=== PATIENT | male | born 1970 | race Two or more races ===

== ENCOUNTER 2018-01-02 08:10 | Outpatient (CLI) | payer OTHER | END 2018-01-02 11:34 | disposition home or self-care (01) | LOC: NUCLEAR 08:10 | DX: I80.8 Phlebitis and thrombophlebitis of other sites (principal); I87.2 Venous insufficiency (chronic) (peripheral) ==

== ENCOUNTER 2018-02-23 11:15 | Outpatient (CLI) | payer OTHER | END 2018-02-23 17:00 | disposition home or self-care (01) | LOC: SONOGRAMA 11:15 | DX: R10.11 Right upper quadrant pain (principal); B19.9 Unspecified viral hepatitis without hepatic coma ==

== ENCOUNTER 2018-12-13 13:49 | Emergency (ER) | payer OTHER ==
[~2018-12-13] VITALS: Ht 170.2 cm; Wt 72.1 kg
== END 2018-12-13 15:33 | disposition home or self-care (01) ==
LOC: ER 13:49
DX: B34.9 Viral infection, unspecified (principal); J40 Bronchitis, not specified as acute or chronic

== ENCOUNTER 2019-06-05 10:59 | Outpatient (CLI) | payer OTHER | END 2019-06-05 11:10 | disposition home or self-care (01) | LOC: LAB 10:59 | DX: C18.9 Malignant neoplasm of colon, unspecified (principal); Z12.11 Encounter for screening for malignant neoplasm of colon; D64.4 Congenital dyserythropoietic anemia; R11.0 Nausea ==

== ENCOUNTER 2019-06-09 10:22 | Outpatient (CLI) | payer OTHER | END 2019-06-09 17:00 | disposition home or self-care (01) | LOC: TOM 10:22 | DX: R10.84 Generalized abdominal pain (principal); R19.00 Intra-abdominal and pelvic swelling, mass and lump, unspecified site ==

== ENCOUNTER 2019-07-16 15:58 | Outpatient (CLI) | payer OTHER | END 2019-07-16 17:00 | disposition home or self-care (01) | LOC: RAD 15:58 | DX: M54.2 Cervicalgia (principal) ==

== ENCOUNTER 2020-10-13 14:31 | Outpatient (CLI) | payer OTHER | END 2020-10-13 14:40 | disposition home or self-care (01) | LOC: MRI 14:31 | PROVIDERS: ATTEND Physical Medicine & Rehabilitation | DX: M54.2 Cervicalgia (principal) | CPT/HCPCS: 72141 ==

== ENCOUNTER 2021-04-17 09:06 | Outpatient (CLI) | payer OTHER | END 2021-04-17 09:21 | disposition home or self-care (01) | LOC: TOM 09:06 | PROVIDERS: ATTEND General Practice | DX: K76.0 Fatty (change of) liver, not elsewhere classified (principal); K85.80 Other acute pancreatitis without necrosis or infection; K63.89 Other specified diseases of intestine; K57.90 Diverticulosis of intestine, part unspecified, without perforation or abscess without bleeding ==

== ENCOUNTER 2021-07-05 12:29 | Outpatient (CLI) | payer OTHER | END 2021-07-05 12:34 | disposition home or self-care (01) | LOC: RAD 12:29 | PROVIDERS: ATTEND Physical Medicine & Rehabilitation | DX: M25.511 Pain in right shoulder (principal); M25.579 Pain in unspecified ankle and joints of unspecified foot ==

== ENCOUNTER 2021-08-29 09:00 | Outpatient (CLI) | payer OTHER | END 2021-08-29 09:33 | disposition home or self-care (01) | LOC: PPH VACUNA 09:00 | PROVIDERS: ATTEND Emergency Medicine Pediatric Emergency Medicine | DX: Z23 Encounter for immunization (principal) ==

== ENCOUNTER 2022-01-04 08:00 | Outpatient (CLI) | payer OTHER | END 2022-01-04 08:30 | disposition home or self-care (01) | LOC: PPH VACUNA 08:00 | PROVIDERS: ATTEND Emergency Medicine Pediatric Emergency Medicine | DX: Z23 Encounter for immunization (principal) ==

== ENCOUNTER 2022-02-01 12:21 | Outpatient (CLI) | payer OTHER | END 2022-02-01 12:31 | disposition home or self-care (01) | LOC: MRI 12:21 → EDBD 12:21 → MRI 12:31 | PROVIDERS: ATTEND Physical Medicine & Rehabilitation | DX: M25.562 Pain in left knee (principal) | CPT/HCPCS: 73721 ==

== ENCOUNTER 2022-06-06 14:15 | Outpatient (CLI) | payer OTHER | END 2022-06-06 14:19 | disposition home or self-care (01) | LOC: PPH VACUNA 14:15 | PROVIDERS: ATTEND Emergency Medicine Pediatric Emergency Medicine | DX: Z23 Encounter for immunization (principal) ==

== ENCOUNTER 2022-09-06 09:35 | Outpatient (CLI) | payer OTHER | END 2022-09-06 09:50 | disposition home or self-care (01) | LOC: MRI 09:35 | PROVIDERS: ATTEND Otolaryngology | DX: H61.23 Impacted cerumen, bilateral (principal); H93.13 Tinnitus, bilateral; H90.3 Sensorineural hearing loss, bilateral; J30.9 Allergic rhinitis, unspecified ==

== ENCOUNTER 2022-10-02 10:14 | Outpatient (CLI) | payer OTHER | END 2022-10-02 10:39 | disposition home or self-care (01) | LOC: TOM 10:14 | DX: I61.0 Nontraumatic intracerebral hemorrhage in hemisphere, subcortical (principal) ==

== ENCOUNTER 2024-12-04 14:04 | Emergency (ER) | payer OTHER ==
[~2024-12-04] VITALS: Ht 167.6 cm; Wt 69.9 kg
[2024-12-04] MEDS ORDERED: LEVSIN0.125 MG (14:26)
[2024-12-04] MEDS ORDERED: PEPCID AC10 MG (14:26)
[2024-12-04] MEDS ORDERED: ACID REDUCER20 M1 (14:27)
[2024-12-04] MEDS ORDERED: FAMOTIDINE/PF 20 MG/2 ML VIAL IV ONE (16:15)
[2024-12-04] MEDS ORDERED: 0.9 % SODIUM CHLORIDE 500 ML IV ONE (16:30)
[2024-12-04] MEDS ORDERED: KETOROLAC TROMETHAMINE 30 MG VIAL IV ONE (16:30)
[2024-12-04] MEDS ORDERED: FAMOTIDINE/PF 20 MG/2 ML VIAL ONE (16:59)
[2024-12-04] MEDS ORDERED: KETOROLAC TROMETHAMINE 30 MG VIAL ONE (16:59)
[2024-12-04 17:31] LABS: HEMATOCRIT 46.2 % (39.0-48.0); HEMOGLOBIN 15.5 g/dL (13-16.00); MEAN CELL VOLUME 92.9 fL (80.0-100.00); MEAN CORPUSCULAR HEMOGLOBIN 31.2 pg (27.00-32.0); MEAN CORPUSCULAR HGB CONC 33.5 g/dl (32.0-36.0); PLATELET COUNT 170 K/uL (150-450); RED BLOOD COUNT 4.98 M/uL (4.00-6.00); RED CELL DISTRIBUTION WIDTH 12.8 % (11.5-14.5)
[2024-12-04 17:51] LABS: ALBUMIN 3.7 gm/dL (3.4-5.0); BILIRUBIN TOTAL 0.75 mg/dL (0.3-1.2); CALCIUM 9.1 mg/dL (8.5-10.1); CREATININE SERUM 0.96 mg/dL (0.70-1.30); GFR 81.32; POTASSIUM 4.24 mEq/L (3.5-5.1); TOTAL PROTEIN 6.7 gm/dL (6.4-8.2)
[2024-12-04 18:29] LABS: PH,URINE 6.5 (5.0-8.0); URINE APPEARANCE Clear; URINE BILIRRUBIN Negative (NEGATIVE); URINE BLOOD Negative; URINE COLOR Yellow; URINE GLUCOSE Negative (NEGATIVE); URINE KETONE Negative (NEGATIVE); URINE LEUKOCYTE Negative; URINE NITRATE Negative; URINE PROTEIN Negative (NEGATIVE)
[2024-12-04 19:37] LABS: URINE BACTERIA 1.2 uL (0.0-1933); URINE RBC 0.1 uL (0.0-20.8)
[2024-12-04] MEDS ORDERED: PEPCID AC20 MG PO (20:13)
[2024-12-04] MEDS ORDERED: METRONIDAZOLE500 MG PO (20:13)
[2024-12-04] MEDS ORDERED: INTESTINEX680 M1 PO (20:13)
[2024-12-04] MEDS ORDERED: CIPRO500 MG PO (20:13)
[2024-12-04] MEDS ORDERED: LEVSIN0.125 MG PO (20:13)
== END 2024-12-04 21:10 | disposition home or self-care (01) ==
LOC: ER 14:05
PROVIDERS: General Practice
DX: K57.32 Diverticulitis of large intestine without perforation or abscess without bleeding (principal); Z88.0 Allergy status to penicillin